=== PATIENT | female | born 1955 | race Asian ===

== ENCOUNTER 2018-12-16 09:06 | Day surgery (SDC) | payer OTHER ==
[~2018-12-16] VITALS: Ht 157.5 cm; Wt 52.8 kg
[2018-12-16 09:49] VITALS: Ht 157.5 cm; Wt 52.8 kg
[2018-12-16] MEDS ORDERED: SIMVASTATIN (09:56)
[2018-12-16] MEDS ORDERED: COL-RITE (09:56)
[2018-12-16] MEDS ORDERED: RANITIDINE (09:56)
[2018-12-16] MEDS ORDERED: LISINOPRIL (09:56)
[2018-12-16] MEDS ORDERED: LIDOCAINE 4% SOLUTION 50 ML BTL ONE (10:08)
[2018-12-16 10:10] VITALS: BP 129/73; PULSE 77; RESP 18
[2018-12-16] MEDS ORDERED: MIDAZOLAM 1 MG/ML 2 ML INJ ONE ×2 (10:47)
[2018-12-16] MEDS ORDERED: FENTAnyl 50 MCG/ML VIAL ONE (10:47)
[2018-12-16 11:21] VITALS: BP 106/65; PULSE 66; RESP 18
== END 2018-12-16 14:07 | disposition home or self-care (01) ==
LOC: GIL 09:06
PROVIDERS: ATTEND Internal Medicine Gastroenterology
DX: Z12.11 Encounter for screening for malignant neoplasm of colon (principal); K64.2 Third degree hemorrhoids; K29.50 Unspecified chronic gastritis without bleeding; I10 Essential (primary) hypertension
CPT/HCPCS: 43239; 45378; 88305; 88312; J2250; J3010; Z7610

== ENCOUNTER 2019-03-25 05:33 | Day surgery (SDC) | payer OTHER ==
[2019-03-25] VITALS (24 sets, daily range): BP systolic 80–136; BP diastolic 48–81; PULSE 50–62; RESP 14–25; Ht 157.5 cm; Wt 51.3 kg
[~2019-03-25] VITALS: Ht 157.5 cm; Wt 51.3 kg
[~2019-03-25 05:33] MED LIST: COL-RITE; DOCU250C17 PO; LISI10TA2 PO; LISINOPRIL; RANITIDINE; SIMVASTATIN
[2019-03-25] MEDS ORDERED: SOD CHLORIDE 0.9% 1,000 ML IV ONE (06:00)
[2019-03-25] MEDS ORDERED: CEFAZOLIN 2 GM/50 ML (PMX) 50 ML IVPB SCH (06:00)
[2019-03-25] MEDS ORDERED: ONDANSETRON 4 MG INJ IV PRN (07:30)
[2019-03-25] MEDS ORDERED: MEPERIDINE 25 MG INJ IV PRN (07:30)
[2019-03-25] MEDS ORDERED: HYDROmorphONE 1 MG/5 ML IV SYRINGE IV PRN ×3 (07:30)
[2019-03-25] MEDS ORDERED: METOCLOPRAMIDE 10 MG INJ IV PRN (07:30)
[2019-03-25] MEDS ORDERED: ALBUTEROL 0.083% (NEB) 2.5 MG/3 ML AMP HHN PRN (07:30)
[2019-03-25] MEDS ORDERED: FENTAnyl 50 MCG/ML VIAL IV PRN ×3 (07:30)
[2019-03-25] MEDS ORDERED: DIPHENHYDRAMINE 50 MG INJ IV PRN (07:30)
[2019-03-25] MEDS ORDERED: FENTAnyl 50 MCG/ML VIAL ONE (07:49)
[2019-03-25] MEDS ORDERED: ROPIVACAINE 0.5 % 30 ML VIAL ONE (07:50)
[2019-03-25] MEDS ORDERED: CEFAZOLIN 1 GM INJ ONE (08:28)
[2019-03-25] MEDS ORDERED: SUGAMMADEX SODIUM 200 MG/2 ML VIAL IV ONE (08:28)
[2019-03-25] MEDS ORDERED: LIDOCAINE 100 MG SYRINGE ONE (08:28)
[2019-03-25] MEDS ORDERED: ROCURONIUM 50 MG INJ ONE (08:28)
[2019-03-25] MEDS ORDERED: SUCCINYLCHOLINE CHLORIDE 100 MG/5 ML SYG IV ONE (08:28)
[2019-03-25] MEDS ORDERED: PROPOFOL 20 ML ONE (08:28)
[2019-03-25] MEDS ORDERED: HYDROCODONE/APAP (5/325) TAB PO ONE (09:00)
[2019-03-25] MEDS ORDERED: EPHEDrine 25 MG/5 ML SYG IV PRN (09:40)
[2019-03-25] MEDS ORDERED: LACTATED RINGER'S 500 ML IV ONE (09:47)
== END 2019-03-25 11:22 | disposition home or self-care (01) ==
LOC: SDS 05:33
PROVIDERS: ATTEND Surgery
DX: K80.10 Calculus of gallbladder with chronic cholecystitis without obstruction (principal); I10 Essential (primary) hypertension
CPT/HCPCS: 47562; J0690; J1170; J2001; J2175; J2405; J2765; J2795; J3010; Z7610; 88304